=== PATIENT | male | born 1945 | race Caucasian/White ===

== ENCOUNTER 2021-08-29 07:12 | Observation (INO) ==
[2021-08-29] MEDS ORDERED: 0.9 % Sodium Chloride 1,000 ML ONE ×2 (07:47→12:11)
[2021-08-29] MEDS ORDERED: *HR* Heparin 10,000 UNIT/10 ML VIAL ONE ×2 (12:11→13:04)
[2021-08-29] MEDS ORDERED: Heparin 1,000 UNITS/500 mL 500 ML ONE (12:11)
[2021-08-29] MEDS ORDERED: ISOVUE-370 200 ML INFUS..BTL ONE (12:11)
[2021-08-29] MEDS ORDERED: Nitroglycerin 1,000 MCG/5 ML VIAL IV ONE (12:12)
[2021-08-29] MEDS ORDERED: *HR* FentaNYL (PF) 100 MCG/2 ML VIAL ONE (12:40)
[2021-08-29] MEDS ORDERED: *HR* Midazolam HCl 2 MG/2 ML VIAL ONE (12:41)
[2021-08-29] MEDS ORDERED: Aspirin 325 MG TABLET ONE (13:06)
[2021-08-29] MEDS ORDERED: *HR* LORazepam 0.5 MG TABLET PO PRN (13:49)
[2021-08-29] MEDS: carvediloL 6.25 MG TABLET PO SCH (16:40)
[2021-08-30 01:19] LABS: Basophils # 0.1 K/mcL (0.0-0.2); Basophils % 0.6 %; Eosinophils # 0.2 K/mcL (0.0-0.6); Eosinophils % 2.6 %; Hematocrit 40.9 % (37.5-50.1); Hemoglobin 13.4 g/dL (12.9-16.9); Immature Granulocytes % 0.3 % (0-4); Lymphocytes # 2.4 K/mcL (0.6-4.6); Lymphocytes % 28.1 %; Mean Corpuscular HGB Conc 32.8 g/dL (31.6-35.5); Mean Corpuscular Hemoglobin 30.9 pg (28.0-33.3); Mean Corpuscular Volume 94.2 fL (83.0-100.0); Mean Platelet Volume 9.2 fL (9.4-12.4); Monocytes # 1.1 K/mcL (0.0-1.3); Monocytes % 12.2 %; Neutrophils # 4.8 K/mcL (1.6-8.9); Platelet Count 255 K/mcL (140-400); Red Blood Count 4.34 M/mcL (4.19-5.50); Red Cell Distribution Width 14.3 % (11.5-14.5); Segmented Neutrophils % 56.2 %; White Blood Count 8.6 K/mcL (4.3-11.1)
[2021-08-30 01:47] LABS: Troponin I 0.09 ng/mL (< 0.04)
[2021-08-30 01:49] LABS: BUN/Creatinine Ratio 25 (6-26); Blood Urea Nitrogen 22 mg/dL (8-23); Calcium 8.5 mg/dL (8.6-10.3); Carbon Dioxide 27 mEq/L (23-29); Chloride 102 mEq/L (98-107); Glucose 105 mg/dL (70-105); Osmolality,Calculated 284 (280-300); Potassium 4.6 mEq/L (3.5-5.1); Sodium 135 mEq/L (136-145); eGFR For African Americans > 60 (> 60); eGFR For Non-African Americans > 60 (> 60)
[2021-08-30] MEDS ORDERED: DEXLANSOPRAZOLE 60 MG PO SCH (06:30)
[2021-08-30 07:02] VITALS: PULSE 67
[2021-08-30] MEDS: carvediloL 6.25 MG TABLET PO SCH (08:07)
[2021-08-30] MEDS ORDERED: Aspirin 81 MG TAB.CHEW PO SCH (09:00)
[2021-08-30] MEDS ORDERED: Isosorbide MONOnitrate (24 HR) 60 MG TAB.ER.24H PO SCH (09:00)
[2021-08-30 10:47] VITALS: BP 96/57; TEMP 97.9; O2SAT 93
== END 2021-08-30 12:20 | disposition home or self-care (01) ==
LOC: 3BNU 07:12 → INVDIALAB 07:12 → 3BNU 15:17
PROVIDERS: ADMIT Internal Medicine; ATTEND Internal Medicine